=== PATIENT | male | born 1995 | race Caucasian/White ===

== ENCOUNTER 2023-09-01 17:25 | Emergency (ER) | payer OTHER ==
[~2023-09-01] VITALS: Ht 188 cm; Wt 115.0 kg
[2023-09-01 17:25] VITALS: TEMP 97.8
[2023-09-01] MEDS ORDERED: NITROGLYCERIN 0.4MG SUBL TABLET SL PRN (17:55)
[2023-09-01] MEDS ORDERED: ASPIRIN 81MG CHEW TABLET PO ONE (17:55)
[2023-09-01 18:09] LABS: BASO % 0.5 % (0.0-1.0); EOS % 0.5 % (0.0-3.0); HEMATOCRIT 47.4 % (42.0-52.0); HEMOGLOBIN 16.2 g/dl (13.5-17.5); LYMPH # 1.3 10^3/uL (1.5-5.0); LYMPH % 20.8 % (24.0-44.0); MEAN CORPUSCULAR HEMOGLOBIN 29.4 pg (27.0-33.0); MEAN CORPUSCULAR HGB CONC 34.2 g/dl (32.0-36.5); MONO # 0.6 10^3/uL (0.0-0.8); MONO % 8.7 % (2.0-8.0); NEUTROPHILS # 4.4 10^3/uL (1.5-8.5); NEUTROPHILS % 69.3 % (36.0-66.0); PLATELET COUNT, AUTOMATED 200 10^3/uL (150-450); RED BLOOD COUNT 5.51 10^6/uL (4.30-6.10); WHITE BLOOD COUNT 6.3 10^3/uL (4.0-10.0)
[2023-09-01 18:40] LABS: BLOOD UREA NITROGEN 11 MG/DL (9-23); CALCIUM LEVEL 9.5 MG/DL (8.5-10.1); CARBON DIOXIDE LEVEL 28 MMOL/L (20-31); CHLORIDE LEVEL 100 MMOL/L (98-107); CK-MB VALUE MASS 2.2 NG/ML (<3.6); CPK CREATINE PHOSPHOKINASE 491 U/L (46-171); CREATININE FOR GFR 1.02 MG/DL (0.70-1.30); GLOMERULAR FILTRATION RATE > 60.0 (>60); GLUCOSE, FASTING 127 MG/DL (60-100); MB/CK RELATIVE INDEX 0.44 (< OR =4); POTASSIUM SERUM 3.8 MMOL/L (3.5-5.1); SODIUM LEVEL 136 MMOL/L (136-145)
[2023-09-01] MEDS ORDERED: NS 1,000 ML IV ONE (18:50)
[2023-09-01] MEDS ORDERED: PRAS10TA2 (19:42)
[2023-09-01] MEDS ORDERED: METO1TAB87 (19:42)
[2023-09-01] MEDS ORDERED: NITR0.4S14 (19:42)
[2023-09-01] MEDS ORDERED: ASPI-226 (19:42)
[2023-09-01] MEDS ORDERED: ATOR40TA75 (19:42)
[2023-09-01 19:57] LABS: CK-MB VALUE MASS 1.6 NG/ML (<3.6)
[2023-09-01 19:58] LABS: MB/CK RELATIVE INDEX 0.4 (< OR =4)
[2023-09-01 21:00] VITALS: BP 139/80; O2SAT 94
[2023-09-01 21:21] LABS: CK-MB VALUE MASS 1.4 NG/ML (<3.6)
[2023-09-01 21:23] LABS: MB/CK RELATIVE INDEX 0.35 (< OR =4)
== END 2023-09-01 21:55 | disposition home or self-care (01) ==
LOC: M ED 17:25
DX: R07.9 Chest pain, unspecified (principal); I25.10 Atherosclerotic heart disease of native coronary artery without angina pectoris; I25.2 Old myocardial infarction; Z95.5 Presence of coronary angioplasty implant and graft; Z95.1 Presence of aortocoronary bypass graft; Z82.49 Family history of ischemic heart disease and other diseases of the circulatory system